=== PATIENT | female | born 1935 | race Caucasian/White ===

== ENCOUNTER 2016-02-19 13:16 | Inpatient (IN) | payer MEDICARE, BC ==
[~2016-02-19 13:16] MED LIST: ASPIRIN EC81 MG PO; ISOSORBIDE MONO30 M4 PO; LASIX40 M1 PO; NORVASC10 M2 PO; OMEPRAZOLE20 M4 PO; PLAVIX75 M1 PO; SPIRIVA18 MC1 INH; SYMBICORT 160-1 PUFF INH; SYNTHROID100 MC1 PO; ZEBETA10 M1 PO; ZOCOR40 M1 PO; ZYLOPRIM100 M1 PO
[2016-02-19 16:33] LABS: ABG CO2 ARTERIAL 22 mmol/L (21-27); ARTERIAL BLD GAS O2 SATURATION 91 % (95-98); ARTERIAL BLOOD GAS PCO2 32 mmHg (32-45); ARTERIAL PO2 62 mmHg (70-100); BICARBONATE 21 mmol/L (21-28); BLOOD GAS BASE EXCESS -3 mM/L (-/+3); PH 7.43 Units (7.35-7.45)
[2016-02-19 16:45] LABS: CARBON DIOXIDE-VENOUS 22 mmol/L (21-33); CREATININE 3.44 mg/dl (0.67-1.17); GLUCOSE 161 mg/dl (65-120); POTASSIUM 5.3 mmol/L (3.5-5.3); SODIUM 139 mmol/L (135-146); eGFR VALUE FOR BLACK 16 mL/Min
[2016-02-19 16:50] LABS: BASO % 0.2 % (0-2); HGB-HEMOGLOBIN 9.4 gm/dl (12.0-15.5); IMMATURE GRANULOCYTES ABSOLUTE 0.18 tho/cmm (0-0.03); IMMATURE GRANULOCYTES PERCENT 1.5 % (0-0.3); LYMPH % 10.8 % (20-45); LYMPH ABSOLUTE COUNT 1.3 tho/cmm (0.8-4.5); MCH (MEAN CORPUSCULAR HGB) 29.7 pg (28.0-32.0); MCHC MEAN CORPUSCULAR HGB CONC 31.3 % (32.0-36.0); MCV (MEAN CELL VOLUME) 94.6 fl (82.0-96.0); MEAN PLATELET VOLUME 10.2 cmc (9.4-12.4); MONO % 4.4 % (0-12); MONOCYTE ABSOLUTE COUNT 0.5 tho/cmm (0.0-1.2); NEUTROPHIL ABSOLUTE COUNT 9.9 tho/cmm (1.6-8.0); NEUTROPHIL-AUTOMATED 9.9 tho/cmm (1.6-8.0); NEUTROPHILS % 83.1 % (40-80); PLATELET COUNT 318 tho/cmm (150-450); RED BLOOD COUNT 3.17 mil/cmm (4.00-5.20); RED CELL DISTRIBUTION WIDTH 19.6 % (12.4-16.4); WHITE BLOOD COUNT 11.9 tho/cmm (4.0-10.0)
[2016-02-19 16:53] LABS: INR 0.9 INR (0.9-1.1); PROTHROMBIN TIME 10.7 SECONDS (9.0-13.6)
[2016-02-19 17:03] LABS: ALB/GLOB RATIO 1.4 (0.8-2.0); ALBUMIN 2.9 g/dl (3.5-5.2); ALKALINE PHOSPHATASE 52 U/L (35-104); ALT/SGPT 32 U/L (0-33); AST/SGOT 20 U/L (0-32); BILIRUBIN,TOTAL 0.5 mg/dl (0-1.0); BLOOD UREA NITROGEN 70 mg/dl (6-25); C-REACTIVE PROTEIN 5.4 mg/dl (0-0.5); CALCIUM 8.2 mg/dl (8.6-10.2); CHLORIDE 108 mmol/L (98-110)
[2016-02-19 17:14] LABS: ANION GAP 9 mmol/L (5-15)
[2016-02-19 17:22] LABS: PROCALCITONIN 0.25 ng/ml (0.05-0.09)
[2016-02-19 22:08] LABS: ABG CO2 ARTERIAL 23 mmol/L (21-27); ARTERIAL BLD GAS O2 SATURATION 93 % (95-98); ARTERIAL BLOOD GAS PCO2 32 mmHg (32-45); ARTERIAL PO2 65 mmHg (70-100); BICARBONATE 22 mmol/L (21-28); BLOOD GAS BASE EXCESS -1 mM/L (-/+3); PH 7.45 Units (7.35-7.45)
[2016-02-19 22:52] LABS: PROCALCITONIN 0.28 ng/ml (0.05-0.09)
[2016-02-20 05:31] LABS: ABG CO2 ARTERIAL 22 mmol/L (21-27); ARTERIAL BLD GAS O2 SATURATION 94 % (95-98); ARTERIAL BLOOD GAS PCO2 28 mmHg (32-45); ARTERIAL PO2 62 mmHg (70-100); BICARBONATE 22 mmol/L (21-28); BLOOD GAS BASE EXCESS -1 mM/L (-/+3)
[2016-02-20 05:33] LABS: HGB-HEMOGLOBIN 9.9 gm/dl (12.0-15.5); PLATELET COUNT 291 tho/cmm (150-450)
[2016-02-20 05:48] LABS: ABG CO2 ARTERIAL 20 mmol/L (21-27); ARTERIAL BLD GAS O2 SATURATION 97 % (95-98); ARTERIAL BLOOD GAS PCO2 30 mmHg (32-45); ARTERIAL PO2 71 mmHg (70-100); BICARBONATE 19 mmol/L (21-28); BLOOD GAS BASE EXCESS -4 mM/L (-/+3); PH 7.42 Units (7.35-7.45)
[2016-02-20 13:15] LABS: HCT-HEMATOCRIT 30.5 % (34.0-49.0); HGB-HEMOGLOBIN 9.5 gm/dl (12.0-15.5); MCH (MEAN CORPUSCULAR HGB) 29.7 pg (28.0-32.0); MCHC MEAN CORPUSCULAR HGB CONC 31.1 % (32.0-36.0); MCV (MEAN CELL VOLUME) 95.3 fl (82.0-96.0); PLATELET COUNT 248 tho/cmm (150-450); RED CELL DISTRIBUTION WIDTH 19.6 % (12.4-16.4); WHITE BLOOD COUNT 12.9 tho/cmm (4.0-10.0)
[2016-02-20 13:35] LABS: BLOOD UREA NITROGEN 64 mg/dl (6-25); CALCIUM 8.3 mg/dl (8.6-10.2); CARBON DIOXIDE-VENOUS 19 mmol/L (22-29); CHLORIDE 112 mmol/L (98-110); GLUCOSE 139 mg/dl (65-120); POTASSIUM 5.4 mmol/L (3.4-5.0); eGFR VALUE FOR BLACK 22 mL/Min
[2016-02-20 13:47] LABS: ANION GAP 17 mmol/L (5-15); CREATININE 2.54 mg/dl (0.67-1.17); SODIUM 148 mmol/L (135-146)
[2016-02-20 13:56] LABS: BAND % 9 % (0-20); BAND ABSOLUTE COUNT 1.2 tho/cmm (0-2.0)
[2016-02-21 06:26] LABS: HCT-HEMATOCRIT 32.1 % (34.0-49.0); HGB-HEMOGLOBIN 9.8 gm/dl (12.0-15.5); MCH (MEAN CORPUSCULAR HGB) 29.3 pg (28.0-32.0); MCHC MEAN CORPUSCULAR HGB CONC 30.5 % (32.0-36.0); MCV (MEAN CELL VOLUME) 96.1 fl (82.0-96.0); MEAN PLATELET VOLUME 10.2 cmc (9.4-12.4); NEUTROPHIL-AUTOMATED 10.6 tho/cmm (1.6-8.0); PLATELET COUNT 203 tho/cmm (150-450); RED BLOOD COUNT 3.34 mil/cmm (4.00-5.20); RED CELL DISTRIBUTION WIDTH 19.5 % (12.4-16.4)
[2016-02-21 06:41] LABS: ALB/GLOB RATIO 1.2 (0.8-2.0); ALBUMIN 2.4 g/dl (3.5-5.2); ALKALINE PHOSPHATASE 53 U/L (35-104); ALT/SGPT 41 U/L (0-33); ANION GAP 12 mmol/L (5-15); AST/SGOT 21 U/L (0-32); BILIRUBIN,TOTAL 0.6 mg/dl (0-1.0); BLOOD UREA NITROGEN 59 mg/dl (6-25); CALCIUM 8.1 mg/dl (8.6-10.2); CARBON DIOXIDE-VENOUS 26 mmol/L (22-29); CHLORIDE 107 mmol/L (98-110); CREATININE 2.63 mg/dl (0.67-1.17); GLUCOSE 160 mg/dl (65-120); MAGNESIUM 2.9 mg/dl (1.7-2.5); PREALBUMIN 21.1 mg/dl (20.0-40.0); SODIUM 145 mmol/L (135-146); TRIGLYCERIDES 139 mg/dl (<150); eGFR VALUE FOR BLACK 21 mL/Min
[2016-02-21 06:43] LABS: POTASSIUM 3.8 mmol/L (3.4-5.0)
[2016-02-21 07:39] LABS: BAND % 24 % (0-20); BAND ABSOLUTE COUNT 3.1 tho/cmm (0-2.0); EOSINOPHIL % 1 % (0-7)
[2016-02-21 07:40] LABS: WBC MORPHOLOGY TOXIC GRANULATION
[2016-02-22 04:47] LABS: HGB-HEMOGLOBIN 9.2 gm/dl (12.0-15.5); MCH (MEAN CORPUSCULAR HGB) 29.4 pg (28.0-32.0); MCHC MEAN CORPUSCULAR HGB CONC 30.7 % (32.0-36.0); MCV (MEAN CELL VOLUME) 95.8 fl (82.0-96.0); MEAN PLATELET VOLUME 11.8 cmc (9.4-12.4); NEUTROPHIL-AUTOMATED 13.1 tho/cmm (1.6-8.0); PLATELET COUNT 130 tho/cmm (150-450); RED BLOOD COUNT 3.13 mil/cmm (4.00-5.20); RED CELL DISTRIBUTION WIDTH 19.1 % (12.4-16.4); WHITE BLOOD COUNT 15.3 tho/cmm (4.0-10.0)
[2016-02-22 05:10] LABS: ALBUMIN 2.4 g/dl (3.5-5.2); ANION GAP 13 mmol/L (5-15); BLOOD UREA NITROGEN 60 mg/dl (6-25); CALCIUM 8.1 mg/dl (8.6-10.2); CARBON DIOXIDE-VENOUS 28 mmol/L (22-29); CHLORIDE 106 mmol/L (98-110); CREATININE 2.56 mg/dl (0.67-1.17); GLUCOSE 159 mg/dl (65-120); MAGNESIUM 2.4 mg/dl (1.7-2.5); PHOSPHOROUS 3.3 mg/dl (2.7-4.5); SODIUM 147 mmol/L (135-146); eGFR VALUE FOR BLACK 22 mL/Min
[2016-02-22 08:09] LABS: BAND % 36 % (0-20); BAND ABSOLUTE COUNT 5.5 tho/cmm (0-2.0)
[2016-02-23 04:27] LABS: HCT-HEMATOCRIT 25.3 % (34.0-49.0); HGB-HEMOGLOBIN 7.9 gm/dl (12.0-15.5); MCH (MEAN CORPUSCULAR HGB) 29.6 pg (28.0-32.0); MCHC MEAN CORPUSCULAR HGB CONC 31.2 % (32.0-36.0); MCV (MEAN CELL VOLUME) 94.8 fl (82.0-96.0); MEAN PLATELET VOLUME 10.4 cmc (9.4-12.4); NEUTROPHIL-AUTOMATED 9.6 tho/cmm (1.6-8.0); PLATELET COUNT 101 tho/cmm (150-450); RED BLOOD COUNT 2.67 mil/cmm (4.00-5.20); WHITE BLOOD COUNT 12.1 tho/cmm (4.0-10.0)
[2016-02-23 04:29] LABS: BASO % 0.7 % (0-2); BASO ABSOLUTE COUNT 0.1 tho/cmm (0.0-0.2); EOS % 0.3 % (0-7); IMMATURE GRANULOCYTES ABSOLUTE 0.73 tho/cmm (0-0.03); LYMPH % 8.3 % (20-45); MONO % 5.2 % (0-12); MONOCYTE ABSOLUTE COUNT 0.6 tho/cmm (0.0-1.2); NEUTROPHIL ABSOLUTE COUNT 9.6 tho/cmm (1.6-8.0); NEUTROPHILS % 79.5 % (40-80)
[2016-02-23 04:40] LABS: ANION GAP 11 mmol/L (5-15); BLOOD UREA NITROGEN 62 mg/dl (6-25); CALCIUM 7.4 mg/dl (8.6-10.2); CARBON DIOXIDE-VENOUS 25 mmol/L (22-29); CHLORIDE 103 mmol/L (98-110); CREATININE 2.39 mg/dl (0.67-1.17); GLUCOSE 162 mg/dl (65-120); MAGNESIUM 1.8 mg/dl (1.7-2.5); PHOSPHOROUS 3.3 mg/dl (2.7-4.5); POTASSIUM 4.3 mmol/L (3.4-5.0); SODIUM 139 mmol/L (135-146); eGFR VALUE FOR BLACK 24 mL/Min
[2016-02-24 04:49] LABS: HCT-HEMATOCRIT 24.6 % (34.0-49.0); HGB-HEMOGLOBIN 7.8 gm/dl (12.0-15.5); MCH (MEAN CORPUSCULAR HGB) 29.7 pg (28.0-32.0); MCHC MEAN CORPUSCULAR HGB CONC 31.7 % (32.0-36.0); MCV (MEAN CELL VOLUME) 93.5 fl (82.0-96.0); MEAN PLATELET VOLUME 12.1 cmc (9.4-12.4); NEUTROPHIL-AUTOMATED 8.8 tho/cmm (1.6-8.0); PLATELET COUNT 93 tho/cmm (150-450); RED BLOOD COUNT 2.63 mil/cmm (4.00-5.20); RED CELL DISTRIBUTION WIDTH 18.6 % (12.4-16.4); WHITE BLOOD COUNT 11.4 tho/cmm (4.0-10.0)
[2016-02-24 05:18] LABS: ALBUMIN 1.6 g/dl (3.5-5.2); ALKALINE PHOSPHATASE 69 U/L (35-104); ALT/SGPT 38 U/L (0-33); ANION GAP 12 mmol/L (5-15); AST/SGOT 22 U/L (0-32); BILIRUBIN,TOTAL 0.4 mg/dl (0-1.0); BLOOD UREA NITROGEN 64 mg/dl (6-25); CALCIUM 7.5 mg/dl (8.6-10.2); CARBON DIOXIDE-VENOUS 26 mmol/L (22-29); CHLORIDE 97 mmol/L (98-110); GLUCOSE 142 mg/dl (65-120); MAGNESIUM 1.9 mg/dl (1.7-2.5); PHOSPHOROUS 2.8 mg/dl (2.7-4.5); POTASSIUM 4.3 mmol/L (3.4-5.0); SODIUM 135 mmol/L (135-146); eGFR VALUE FOR BLACK 22 mL/Min
[2016-02-24 05:19] LABS: ALB/GLOB RATIO 0.5 (0.8-2.0)
[2016-02-24 05:26] LABS: PROCALCITONIN 1.02 ng/ml (0.05-0.09)
[2016-02-24 05:45] LABS: BAND % 13 % (0-20); BAND ABSOLUTE COUNT 1.5 tho/cmm (0-2.0); WBC MORPHOLOGY TOXIC GRANULATION
[2016-02-25 04:07] LABS: HCT-HEMATOCRIT 26.6 % (34.0-49.0); HGB-HEMOGLOBIN 8.4 gm/dl (12.0-15.5); MCH (MEAN CORPUSCULAR HGB) 29.3 pg (28.0-32.0); MCHC MEAN CORPUSCULAR HGB CONC 31.6 % (32.0-36.0); MCV (MEAN CELL VOLUME) 92.7 fl (82.0-96.0); MEAN PLATELET VOLUME 11.3 cmc (9.4-12.4); NEUTROPHIL-AUTOMATED 7.4 tho/cmm (1.6-8.0); PLATELET COUNT 90 tho/cmm (150-450); RED BLOOD COUNT 2.87 mil/cmm (4.00-5.20); RED CELL DISTRIBUTION WIDTH 18.4 % (12.4-16.4); WHITE BLOOD COUNT 9.3 tho/cmm (4.0-10.0)
[2016-02-25 04:14] LABS: BASO % 0.4 % (0-2); EOS % 0.5 % (0-7); EOSINOPHIL ABSOLUTE COUNT 0.1 tho/cmm (0.0-0.7); IMMATURE GRANULOCYTES ABSOLUTE 0.53 tho/cmm (0-0.03); IMMATURE GRANULOCYTES PERCENT 5.7 % (0-0.3); LYMPH % 9.4 % (20-45); LYMPH ABSOLUTE COUNT 0.9 tho/cmm (0.8-4.5); MONO % 4.4 % (0-12); MONOCYTE ABSOLUTE COUNT 0.4 tho/cmm (0.0-1.2); NEUTROPHIL ABSOLUTE COUNT 7.4 tho/cmm (1.6-8.0); NEUTROPHILS % 79.6 % (40-80)
[2016-02-25 04:53] LABS: ANION GAP 13 mmol/L (5-15); BLOOD UREA NITROGEN 66 mg/dl (6-25); CALCIUM 7.8 mg/dl (8.6-10.2); CARBON DIOXIDE-VENOUS 26 mmol/L (22-29); CHLORIDE 98 mmol/L (98-110); CREATININE 2.59 mg/dl (0.67-1.17); GLUCOSE 165 mg/dl (65-120); MAGNESIUM 1.6 mg/dl (1.7-2.5); PHOSPHOROUS 2.8 mg/dl (2.7-4.5); POTASSIUM 3.9 mmol/L (3.4-5.0); SODIUM 137 mmol/L (135-146); eGFR VALUE FOR BLACK 22 mL/Min
[2016-02-25 07:27] LABS: WBC MORPHOLOGY TOXIC GRANULATION
--- NOTE | 2016-02-25 10:30 | NUR ---
02/24: PT PLACED ON COMFORT CARES AFTER FAMILY MEETING WITH PALLIATIVE CARE. PT VERBALLY STATED SHE WANTED TO STOP TREATMENT MEASURES AND BE COMFORTABLE. NG TUBE TO LIS, GOLYTELY STOPPED. WILL INITIATIVE COMFORT CARE ORDER SET AND MEDICATIONS FOR COMFORT. FAMILY AT BEDSIDE AND STATED THAT THEY WOULD LIKE THE PATIENT TO HAVE PAIN MEDICATION SOON IT IS AVAILABLE.
== END 2016-02-26 15:25 | disposition expired | DRG 871 ==
LOC: 5WE 13:16 → PCUB 17:35
PROVIDERS: Family Medicine; Hospitalist; Internal Medicine Nephrology; Internal Medicine Pulmonary Disease; ADMIT Family Medicine
PROC: 5A09357 Assistance with Respiratory Ventilation, Less than 24 Consecutive Hours, Continuous Positive Airway Pressure (ICD-10-PCS; 2016-02-19)
PROC: 05HM33Z Insertion of Infusion Device into Right Internal Jugular Vein, Percutaneous Approach (ICD-10-PCS; principal; 2016-02-20)
PROC: B543ZZA Ultrasonography of Right Jugular Veins, Guidance (ICD-10-PCS; principal; 2016-02-20)
DX: A41.9 Sepsis, unspecified organism (principal); B37.1 Pulmonary candidiasis; J96.21 Acute and chronic respiratory failure with hypoxia; E43 Unspecified severe protein-calorie malnutrition; N18.4 Chronic kidney disease, stage 4 (severe); I13.0 Hypertensive heart and chronic kidney disease with heart failure and stage 1 through stage 4 chronic kidney disease, or unspecified chronic kidney disease; J18.1 Lobar pneumonia, unspecified organism; N17.9 Acute kidney failure, unspecified; K56.69 Other intestinal obstruction; I50.32 Chronic diastolic (congestive) heart failure; I27.2 Other secondary pulmonary hypertension; J98.11 Atelectasis; I07.1 Rheumatic tricuspid insufficiency; I48.2 Chronic atrial fibrillation; E87.5 Hyperkalemia; J44.9 Chronic obstructive pulmonary disease, unspecified; D64.9 Anemia, unspecified; I25.10 Atherosclerotic heart disease of native coronary artery without angina pectoris; Z51.5 Encounter for palliative care; R65.20 Severe sepsis without septic shock; E03.9 Hypothyroidism, unspecified; E78.5 Hyperlipidemia, unspecified; Z66 Do not resuscitate; R73.9 Hyperglycemia, unspecified; F43.21 Adjustment disorder with depressed mood; Z68.29 Body mass index [BMI] 29.0-29.9, adult
CPT/HCPCS: C1751; J0885; J1170; J1650; J1815; J1940; J1956; J2060; J2250; J2405; J2543; J3010; J3370; J3480; J7050; P9047